=== PATIENT | male | born 1950 | race Caucasian/White ===

== ENCOUNTER → 2018-09-25 08:42 | Outpatient (CLI) | payer MEDICARE, BC | END | disposition home or self-care (01) | LOC: D.HCCARDIO 08:42 | DX: I20.9 Angina pectoris, unspecified (principal) ==

== ENCOUNTER 2018-10-25 10:28 | Outpatient (CLI) | payer MEDICARE ==
[~2018-10-25] VITALS: Ht 162.6 cm; Wt 99.1 kg
--- NOTE | ~2018-10-25 | HEMODYNAMI ---
PATIENT:ADY SWANSON MEDICAL RECORD: [id number] : 50 LOCATION:[facility] ADMISSION DATE: 10/25/18 Generatedon:10/25/201813:13 Patient name: ADY SWANSON Patient #: [id number] SSN: : 1950 Date of study: 10/25/2018 Page: Of Hemodynamic Procedure Report Patient Data Patient Demographics Procedure consent was obtained First Name: ADY Gender: Male Last Name: KIKI : 1950 [facility] Initial: Eleanor Age: 68 year(s) Patient #: [id number] Race: Additional ID: [id number] Contact details [address]: [address] [place] [address] State: [place] City: [place] Zip code: [address] Past Medical History Allergies: No known allergies Admission Admission Data Admission Date: 10/25/2018 Admission Time: 10:28 Height (in.): 64 BSA: 2.03 (m2) Height (cm.): 162.56 BMI: 37.5 (kg/m2) Weight (lbs.): 218.46 Weight (kg.): 99.09 Lab Results Lab Result Date: 10/25/2018 Lab Result Time: 0:00 Biochemistry Name Units Result Min Max BUN mg/dl 15 --(--*-)-- 7 18 Creatinine mg/dl 1.7 --(----)-* 0.6 1.3 CBC Name Units Result Min Max Hemoglobin g/dl 15.1 --(-*--)-- 13.5 17.5 Procedure Procedure Types Cath Procedure Diagnostic Procedure LHC C w/Coronaries Procedure Description Procedure Date Procedure Date: 10/25/2018 Procedure Start Time: 13:03 Procedure End Time: 13:13 Procedure Staff Name Function Ridge Piña MD Performing Physician Gloria Davidson RT Monitor Maggi Angel RT Scrub Rupal Medellin RN Nurse Procedure Data Cath Procedure Fluoroscopy Diagnostic fluoroscopy Total fluoroscopy Time: 1.4 time: 1.4 min min Diagnostic fluoroscopy Total fluoroscopy dose: 504 dose: 504 mGy mGy Contrast Material Contrast Material Type Amount (ml) Isovue 300 45 Entry Location Entry Primary Successful Side Size Upsize Upsize Entry Closure Succes sful Closure Location (Fr) 1 (Fr) 2 (Fr) Remarks Device Remarks Femoral Right 5 Fr Exoseal artery Estimated blood loss: 10 ml Diagnostic catheters Device Type Used For End Catheter Placement MULTIPACK JL 4.0 5Fr Procedure catheter MULTIPACK 3DRC 5Fr Procedure catheter MULTIPACK Pigtail 5 Fr Procedure catheter Procedure Complications No complications Procedure Medications Medication Administration Route Dosage 0.9% NaCl I.V. 100 ml/hr Oxygen etCO2 Nasal cannula 2 l/min Lidocaine 2% added to field 20 Heparin Flush Bag added to field 2 bags (1000units/500ml NS) Versed I.V. 2 mg Fentanyl I.V. 50 mcg Versed I.V. 1 mg Fentanyl I.V. 25 mcg Hemodynamics Rest BSA: 2.03 (m2) HGB: 15.1 (g/dl) O2 Consumption: Estimated: 207.07 (ml/min) O2 Co nsumption indexed: Estimated:102 (ml/min/m) Heart Rate: 33 (bpm) Pressure Samples Time Site Value (mmHg) Purpose Heart Use Rate(bpm) 13:08 LV 103/4,10 Snapshot 60 13:08 LV 87/7,19 EDP 61 13:09 AO 98/57(73) Pullback 63 13:09 LV 104/10,16 Pullback 63 Gradients Valve Time Site 1 Site 2 Mean SEP/DFP Peak To Heart Use (mmHg) (sec/min) Peak Rate (mmHg) (bpm) Aortic 13:09 LV AO 12 13 6 63 104/10,16 98/57(73) Calculations Valve P-P Mean Valve Index Valve Source Name Gradient Area Flow (cm2) Aortic 6 12 6 12 Snapshots Pre Cath Intra NCS Post Cath Vital Signs Time Heart Resp SPO2 etCO2 NIBP (mmHg) Rhythm Pain Sedation Rate (ipm) (%) (mmHg) Status Level (bpm) 12:52:18 63 12 100 31.1 162/93(131) NSR 0 (11) 10(A) , No pain 12:56:34 64 13 99 31.1 155/91(116) NSR 0 (11) 10(A) , No pain 13:01:05 63 10 98 38 127/75(110) NSR 0 (11) 9(A) , No pain 13:05:13 69 10 98 39.4 121/81(95) NSR 0 (11) 9(A) , No pain 13:09:25 69 10 98 41 122/79(96) NSR 0 (11) 10(A) , No pain Medications Time Medication Route Dose Verified Delivered Reason Notes Eff ectiveness by by 12:53:18 0.9% NaCl I.V. 100 Ridge Rupal used for ml/hr Wang Medellin disability examiner 12:53:27 Oxygen etCO2 2 Ridge Rupal used for Nasal l/min Wang Medellin procedure cannula RN 12:53:33 Lidocaine 2% added 20ml Ridge Ridge for local to vial Wang Piña MD anesthetic field 12:53:38 Heparin Flush added 2 Ridge Ridge used for Bag to bags Wang Piña MD procedure (1000units/500ml field NS) 13:00:44 Versed I.V. 2 mg Ridge Rupal for Wang Medellin sedation RN 13:00:58 Fentanyl I.V. 50 Ridge Rupal for mcg Wang Medellin sedation RN 13:07:47 Versed I.V. 1 mg Ridge Rupal for Wang Medellin sedation RN 13:07:58 Fentanyl I.V. 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 Start room use. 12:35:21 Time tracking: Regular hours (M-F 7:00 - 5:00) 12:35:25 Plan of Care:Hemodynamics will remain stable., Cardiac rhythm will remain stable., Comfort level will be maintained., Respiratory function will remain adequate., Patient/ family verbilizes understanding of procedure., Procedure tolerated without complication., Recovers from procedure without complications.. 12:40:16 Patient received from Pre/Post Procedure Room to CCL 1 Alert and oriented. Tansferred to table in Supine position. 12:40:18 Warm blankets applied, and brandy hugger turned on for patient comfort. 12:40:19 Correct patient and procedure confirmed by team. 12:40:24 Signed procedure consent form obtained from patient. 12:40:26 ECG and BP/O2 sat monitors applied to patient. 12:51:03 Vital chart was started 12:51:05 Baseline sample Acquired. 12:51:10 Full Disclosure recording started 12:51:56 H&P Date Dictated: 09/25/2018 Within 30 days and on chart.. 12:51:58 Pre-procedure instructions explained to patient. 12:52:02 Family in waiting room. 12:52:04 Patient NPO since Midnight. 12:53:18 0.9% NaCl 100 ml/hr I.V. was administered by Rupal Medellin RN; used for procedure; 12:53:27 Oxygen 2 l/min etCO2 Nasal cannula was administered by Rupal Medellin RN; used for procedure; 12:53:33 Lidocaine 2% 20ml vial added to field was administered by Ridge Piña MD; for local anesthetic; 12:53:38 Heparin Flush Bag (1000units/500ml NS) 2 bags added to field was administered by iRdge Piña MD; used for procedure; 12:54:18 Patient allergic to No known allergies 12:54:21 Is the patient allergic to Iodine/contrast media? No. 12:54:22 Was the patient premedicated? Yes 12:54:25 Is patient on blood thinner?No 12:54:27 Patient diabetic? No. 12:54:34 Snore? Yes 12:54:37 Sleep apnea? No 12:54:42 Airway obstruction? Yes asthma 12:54:48 Dentures? No ? 12:54:53 Patient pain scale 0/10 ?. 12:55:04 IV patent on arrival in left forearm with 0.9% NaCl at [facility]. 12:58:59 Lab results completed and on chart. 12:59:21 Lab Result : BUN 15 mg/dl 12:59:21 Lab Result : Hemoglobin 15.1 g/dl 12:59:21 Lab Result : Creatinine 1.7 mg/dl 12:59:27 Right groin area was prepped with chlora-prep and draped in sterile fashion 12:59:28 Alarms reviewed by R. N. 12:59:29 Sharps counted by scrub and verified by R.N. 12:59:29 Physician paged 12:59:31 Physician arrived 12:59:32 --------ALL STOP TIME OUT------ 12:59:33 Final Timeout: patient, procedure, and site verified with staff and physician. All members of the team are in agreement. 12:59:41 Right groin site verified by team. 12:59:58 Patient Height : 64 inches 13:00:06 Patient Weight : 218.46 lbs 13:00:44 Versed 2 mg I.V. was administered by Rupal Medellin RN; for sedation; 13:00:58 Fentanyl 50 mcg I.V. was administered by Rupal Medellin RN; for sedation; 13:02:34 Maximum allowable contrast dose 58ml. Physician notified. 13:02:49 Fire Safety Assessment: A--An alcohol-based skin anteseptic being used preoperatively., C--Open oxygen or nitrous oxide is being used., D--An ESU, laser, or fiber-optic light is being used., E--There are other possible contributors. 13:02:57 Physical assessment completed. ASA score P 2 - A patient with mild systemic disease as per Ridge Piña MD. 13:03:02 Sedation plan: IV Moderate Sedation Medication:Versed, Fentanyl 13:03:08 Use device set Femoral Dx 13:03:10 ACIST Syringe (43684) opened to sterile field. 13:03:10 Bag Decanter (2002S) opened to sterile field. 13:03:10 Medline Cath Pack ([id number]) opened to sterile field. 13:03:11 DIAGNOSTIC WIRE .035 260cm J wire ([id number]) opened to sterile field. 13:03:12 ACIST Hand Control (64435) opened to sterile field. 13:03:13 ACIST Manifold (65344) opened to sterile field. 13:03:13 DIAGNOSTIC Multipack 5Fr catheter set ([id number]) opened to sterile field. 13:03:15 Tegaderm 4 x 4 (1626W) opened to sterile field. 13:03:17 SHEATH 5FR [place] ([id number]) opened to sterile field. 13:03:20 Procedure started. 13:03:35 Local anesthetic to right femoral artery with Lidocaine 2% by Ridge Piña MD.INITIAL ACCESS ONLY 13:03:47 A 5 Fr sheath was inserted into the Right Femoral artery 13:04:04 A MULTIPACK JL 4.0 5Fr catheter was advanced over the wire and used for Procedure. 13:04:35 LCA angiography performed. 13:05:20 Catheter removed. 13:05:28 A MULTIPACK 3DRC 5Fr catheter was advanced over the wire and used for Procedure. 13:05:33 RCA angiography performed. 13:06:39 Catheter removed. 13:07:47 Versed 1 mg I.V. was administered by Rupal Medellin RN; for sedation; 13:07:47 A MULTIPACK Pigtail 5 Fr catheter was advanced over the wire and used for Procedure. 13:07:54 LV gram done using DEAL 13:07:58 Fentanyl 25 mcg I.V. was administered by Rupal Medellin RN; for sedation; 13:08:03 Zero performed for pressure channel P1 13:09:28 EF : 60 % 13:09:30 LV hemodynamics recorded. 13:09:31 Catheter removed. 13:09:39 EXOSEAL 5Fr (EX500) opened to sterile field. 13:10:00 Sheath removed intact; hemostasis achieved with Exoseal to the Right Femoral artery. 13:10:03 Procedure ended.(Physican Out) 13:11:26 Fluoroscopy time 01.40 minutes. 13:11:30 Fluoroscopy dose: 504 mGy 13:11:30 Flurop Dose total: 504 13:11:34 Contrast amount:Isovue 300 45ml. 13:11:37 Sharps counted by scrub and verified by R.N. 13:11:39 Insertion/operative site no bleeding no hematoma. 13:11:46 Post right femoral artery:stable 13:11:51 Post Procedure Pulses reassessed and unchanged 13:12:06 Post-procedure physical assessment completed. ASA score P 2 - A patient with mild systemic disease as per Ridge Piña MD. 13:12:11 Post procedure rhythm: unchanged. 13:12:14 Estimated blood loss: 10 ml 13:12:17 Post procedure instruction explained to patient.Patient verbalizes understanding. 13:12:34 Procedure and supply charges have been captured, reviewed, submitted and are correct. 13:12:55 Procedure Complication : No complications 13:12:57 Vital chart was stopped 13:12:59 See physician's report for complete and final results. 13:13:02 Report given to Pre/Post Procedure Room. 13:13:06 Patient transfered to Pre/Post Procedure Room with Stretcher. 13:13:08 Procedure ended. 13:13:08 Full Disclosure recording stopped Device Usage Item Name Manufacture Quantity Catalog Hospital Part Current Minimal L ot# / Number Charge Number Stock Stock Serial# Code ACIST Acist 1 86210 [id number] [id number] 20 Syringe Medical (39806) Systems Inc Bag Microtek 1 2001S 523955 43397 644703 5 Decanter Medical Inc. () Medline Medline 1 [id number] 262569 11643 468999 5 Cath Pack ([id number]) DIAGNOSTIC St [place] 1 339106 583493 405478 087407 30 WIRE .035 260cm J wire (854257) ACIST Hand Acist 1 53455 217137 351774 781887 5 Control Medical (18318) Systems Inc ACIST Acist 1 32496 135953 662738 915384 5 Manifold Medical (50665) Systems Inc DIAGNOSTIC Cardinal 1 [id number] 029389 58975 064880 30 Multipack Health 5Fr catheter set ([id number]) Tegaderm 4 3M 1 1626W 483906 120611 921833 5 x 4 (1626W) SHEATH 5FR Terumo 1 HYD002 277750 430649 970253 5 [place] (DDX858) MULTIPACK Cardinal 1 875161 5 JL 4.0 5Fr Health catheter MULTIPACK Cardinal 1 907411 5 3DRC 5Fr Health catheter MULTIPACK Cardinal 1 585492 5 Pigtail 5 Health Fr catheter EXOSEAL 5Fr Cardinal 1 EX500 279241 522899 820426 10 (EX500) Health Signature Audit [place] Stage Time Signature Unsigned Intra-Procedure 10/25/2018 Gloria Davidson 1:13:42 PM RT(R) Signatures Monitor : Gloria Davidson Signature : RT Date : Time : [facility] [address] [place] [address]
[2018-10-25] MEDS ORDERED: LEXAPRO10 MG (10:49)
[2018-10-25] MEDS ORDERED: OMEPRAZOLE40 MG PO (10:50)
[2018-10-25] MEDS ORDERED: VASOTEC5 MG PO (10:50)
[2018-10-25 11:04] VITALS: BP 150/78; Ht 162.6 cm; Wt 99.1 kg
[2018-10-25 11:12] LABS: BASOPHILS 0.2 % (0-2); EOSINOPHILS 2.7 % (0-7); HEMATOCRIT 45.5 % (42.0-54.0); HEMOGLOBIN 15.1 g/dL (13.5-17.5); IMMATURE GRANULOCYTES 0.5 % (0-5); LYMPHOCYTES 25.8 % (15-50); MCH 29.3 pg (26.0-34.0); MCHC 33.2 g/dL (31.0-37.0); MCV 88.3 fL (80.0-100.0); MEAN PLATELET VOLUME 9.6 fL (7.4-10.4); MONOCYTES 7.1 % (2-11); NEUTROPHILS 63.7 % (40-80); PLATELET COUNT 178 10x3/uL (130-400); RBC 5.15 10x6/uL (4.20-6.10); RDW 14.5 % (11.5-14.5); WBC 6.7 10x3/uL (4.8-10.8)
[2018-10-25 11:23] LABS: CALCIUM 8.8 mg/dL (8.5-10.1); CARBON DIOXIDE 30.8 mmol/L (21.0-32.0); CREATININE - SERUM 1.7 mg/dL (0.6-1.3); POTASSIUM - SERUM 3.8 mmol/L (3.5-5.1)
--- NOTE | 2018-10-25 13:40 | NUR ---
ROOM AIR, NO RESP DISTRESS. RIGHT GROIN 5F EXOSEAL CDI, NO BLEEDING OR HEMATOMA NOTED. NO C/O PAIN OR NAUSEA. VSS. CALL LIGHT WITHIN REACH.
--- NOTE | 2018-10-25 14:10 | NUR ---
RESTING QUIETLY WITH EYES CLOSED. RIGHT GROIN 5F EXOSEAL CDI, NO BLEEDING OR HEMATOMA NOTED. DENIES ANY NEEDS. CSS. WILL CONTINUE TO MONITOR.
--- NOTE | 2018-10-25 14:25 | NUR ---
CONTINUES TO REST COMFORTABLY WITH NO C/O. RIGHT GROIN 5F EXOSEAL CDI, NO BLEEDING OR HEMATOMA NOTED. VSS. CALL LIGHT WITHIN REACH.
--- NOTE | 2018-10-25 14:40 | NUR ---
HOB ELEVATED 30 DEGREES. RIGHT GROIN 5F EXOSEAL CDI, NO BLEEDING OR HEMATOMA NOTED. SIPPING ON DRINK AND EATING SANDWICH WITH NO C/O NAUSEA. VSS. WILL CONTINUE TO MONITOR.
--- NOTE | 2018-10-25 15:20 | NUR ---
LEFT PIV D/C'D WITH CATHETER INTACT, BAND AID TO SITE. RIGHT GROIN 5F EXOSEAL CDI, NO BLEEDING OR HEMATOMA NOTED. UP TO BEDSIDE TO GET DRESSED.
--- NOTE | 2018-10-25 15:30 | NUR ---
DISCHARGE INSTRUCTIONS GIVEN, VERBALIZED UNDERSTANDING. AMBULATED TO RESTROOM.
--- NOTE | 2018-10-25 15:45 | NUR ---
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 LEFT FACILITY WITH FAMILY AND ALL PERSONAL BELONGINGS.
== END 2018-10-25 15:45 | disposition home or self-care (01) ==
LOC: D.CATH 10:28
PROVIDERS: ATTEND Internal Medicine Cardiovascular Disease
DX: R07.9 Chest pain, unspecified (principal); I10 Essential (primary) hypertension; Z01.812 Encounter for preprocedural laboratory examination